=== PATIENT | female | born 1985 | race Caucasian/White ===

== ENCOUNTER 2017-03-07 20:23 | Emergency (ER) | payer MEDICAID ==
[~2017-03-07] VITALS: Ht 162.6 cm; Wt 76.7 kg
[2017-03-07 21:24] VITALS: BP 97/71
== END 2017-03-07 21:44 | disposition home or self-care (01) ==
LOC: ER 20:23 → EDBD 20:23 → ER 21:44
DX: R12 Heartburn (principal); R31.9 Hematuria, unspecified

== ENCOUNTER 2018-11-03 18:56 | Emergency (ER) | payer MEDICAID ==
[~2018-11-03] VITALS: Ht 152.4 cm; Wt 90.0 kg
[2018-11-03 19:12] VITALS: BP 120/100
== END 2018-11-03 23:16 | disposition left against medical advice (07) ==
LOC: ER 18:57
DX: R52 Pain, unspecified (principal); Z53.21 Procedure and treatment not carried out due to patient leaving prior to being seen by health care provider

== ENCOUNTER 2019-02-25 17:37 | Emergency (ER) | payer MEDICAID ==
[~2019-02-25] VITALS: Ht 160 cm; Wt 102.1 kg
[2019-02-25 18:29] VITALS: BP 98/65
== END 2019-02-25 20:14 | disposition home or self-care (01) ==
LOC: ER 17:37
DX: M25.562 Pain in left knee (principal); W19.XXXA Unspecified fall, initial encounter; Y93.02 Activity, running; Y92.89 Other specified places as the place of occurrence of the external cause; Y99.8 Other external cause status
CPT/HCPCS: 73562; 73590

== ENCOUNTER 2021-03-06 19:31 | Emergency (ER) | payer MEDICAID ==
[~2021-03-06] VITALS: Ht 142.2 cm; Wt 83.9 kg
[2021-03-06 19:46] VITALS: BP 130/67
== END 2021-03-07 01:55 | disposition left against medical advice (07) ==
LOC: ER 19:33
DX: S60.423A Blister (nonthermal) of left middle finger, initial encounter (principal); Z53.21 Procedure and treatment not carried out due to patient leaving prior to being seen by health care provider; X58.XXXA Exposure to other specified factors, initial encounter; Y93.89 Activity, other specified; Y92.89 Other specified places as the place of occurrence of the external cause; Y99.8 Other external cause status